=== PATIENT | male | born 2000 | race African-American/Black ===

== ENCOUNTER 2020-10-17 12:55 | Emergency (ER) | payer OTHER ==
[~2020-10-17] VITALS: Ht 180.3 cm; Wt 86.2 kg
[2020-10-17 13:20] LABS: ABSOLUTE NEUTROPHILS 5.5 thou/uL (1.4-8.2); BASOPHILS 0.7 % (0.0-2.0); EOSINOPHILS 0.2 % (0.0-3.0); HEMATOCRIT 49.2 % (42.0-52.0); HEMOGLOBIN 16.7 gm/dL (14.0-18.0); LYMPHOCYTES 20.9 % (24.0-44.0); MCH 32.3 pg (26.0-34.0); MCHC 33.8 g/dL (28.0-37.0); MCV 95.3 fL (80.0-100.0); MONOCYTES 8.6 % (1.0-8.0); PLATELET COUNT 233 thou/uL (150-400); POLYS 69.6 % (36.0-66.0); RBC 5.16 mil/uL (4.50-6.00)
[2020-10-17 13:29] LABS: CALCIUM 9.7 mg/dL (8.5-10.1); CREATININE 1.5 mg/dL (0.7-1.3); POTASSIUM 4.4 mmol/L (3.5-5.1)
--- NOTE | 2020-10-17 13:31 | EKG ---
[address] [employer] [place] [address] ELECTROCARDIOGRAM REPORT Name: SHAYY GARCIARANJANLEANDRA DUGGAN [id number] Admission: 10/17/20 Attend Phys: Discharge: Date of : 00 Report #: [id number] [facility] ED Test Date: 2020-10-17 Test Time: 13:06:35 Pat Name: SALLY GARCIA Department: Room: Gender: M Apparel Designer: michelle : 2000 Requested By: Tyler Malone Order Number: [id number] MD: Aravind Nicholas Measurements Intervals [place] Rate: 87 P: 83 RI: 134 QRS: 59 QRSD: 89 T: 39 QT: 361 QTc: 435 Interpretive Statements Sinus rhythm J Point elev V1-3, probable normal early repol pattern No previous ECG available for comparison Electronically Signed On 10-17-2020 13:31:06 CDT by Aravind Nicholas [email or web address] <ELECTRONICALLY SIGNED> By: Aravind Nicholas MD, [facility] 10/17/20 1331 1306 1306 Aravind Nicholas MD, FACC /EPI
[2020-10-17 13:35] LABS: ALBUMIN 4.5 g/dL (3.4-5.0); TOTAL BILIRUBIN 1.2 mg/dL (0.2-1.0); TOTAL PROTEIN 9.1 g/dL (6.4-8.2)
[2020-10-17] MEDS ORDERED: KEPPRA 500 MG500 M1 PO (14:14)
[2020-10-17 15:11] VITALS: BP 124/67
[2020-10-17 15:13] LABS: URINE BILIRUBIN NEGATIVE (Negative); URINE BLOOD NEGATIVE (Negative); URINE CLARITY CLEAR; URINE COLOR YELLOW; URINE GLUCOSE-RANDOM* NEGATIVE (Negative); URINE KETONES TRACE (Negative); URINE LEUKOCYTES-REFLEX NEGATIVE (Negative); URINE NITRITE-REFLEX NEGATIVE (Negative); URINE PROTEIN (DIPSTICK) 1+ (Negative); URINE SPECIFIC GRAVITY >= 1.030 (1.005-1.035)
[2020-10-17 15:26] LABS: FINE GRANULAR CASTS 0-3 Few /LPF (None Seen); MUCUS 4-6 Moderate strn/LPF (None Seen)
[2020-10-17 15:27] LABS: SQUAMOUS 0-3 Few /LPF (0-3); URINE RBC None Seen /HPF (NONE SEEN); URINE WBC-REFLEX 0-5 Rare /HPF (0-5)
[2020-10-17 15:28] LABS: BACTERIA-REFLEX 1-9 Few /HPF (None Seen); CRYSTALS None Seen /LPF (None Seen)
== END 2020-10-17 15:51 | disposition home or self-care (01) ==
LOC: ER 12:55
PROVIDERS: Emergency Medicine
DX: R56.9 Unspecified convulsions (principal)

== ENCOUNTER 2021-01-13 17:24 | Emergency (ER) | payer OTHER ==
[~2021-01-13] VITALS: Ht 182.9 cm; Wt 90.7 kg
--- NOTE | ~2021-01-13 | EMS ---
[address] [address] EMS Patient Care Report Name: SALLY GARCIA III Room #: [facility] M.R.#: [id number] Admission: Attend Phys: Discharge: Date of : 00 Report #: [id number] THIS REPORT FOR: //name// Report Transmitted: 01/13/2021 16:57 EMS Care Summary [place], [place]/[facility] Incident [id number] @ 01/13/2021 16:49 Incident Location [address] [place] [address] Patient SALLY GARCIA Male, 20 Years 2000 Patient Address [id number] [place] [address] Patient History Seizures, Patient Allergies No known allergies, Patient Medications None Reported, Chief Complaint seizure Disposition Transported No Lights/[place] Dispatch Reason Convulsions/Seizure Transported To [place] [facility] Narrative Initially dispatched with [facility] for seizures. Upon EMS arrival patient was found laying in his bed, very confused, vomiting, very anxious. Girlfriend [address] [address] EMS Patient Care Report Name: SALLY GARCIA III [facility] [id number] Admission: Attend Phys: Discharge: Date of : 00 Report #: [id number] reported that the patient has a history of seizures but stopped taking his medication because it gave him headaches. She stated that today he had a seizure, but was unsure how long it lasted. Girlfriend stated that she knew he had a seizure because he "spit up" and then fell asleep and was snoring. Patient was carried to the stretcher using a [employer]. Throughout transport the patient kept removing the cannula from his nose and taking his seatbelts off. IV access was not attempted for this reason. Patient was transported to [facility] without incident. Full report was given to RN prior to signing this document. Initial Vitals @17:14P: 179,CO: 12,SpO2: 98, @17:07P: 72,ID Suspected: false @17:15P: 89,BP: 83/43,SpO2: 98, @17:17P: 80,R: 18,BP: 144/64,GCS: 14,CO: 10,SpO2: 98,Revised Trauma: 12, @17:07P: 87,R: 22,BP: 132/67,Pain: 6/10,GCS: 14,SpO2: 98,Revised Trauma: 12, Assessments @16:57MENTAL:Confused,SKIN:No Abnormalities,HEENT:Head/Face: No Abnormalities,Eyes: No Abnormalities,Neck/Airway: No Abnormalities,LUNG SOUNDS:General: Vomiting,ABDOMEN:General: Vomiting,PELVIS//GI:EXTREMITIES:Left Arm: No Abnormalities,Right Arm: No Abnormalities,Left Leg: No Abnormalities,Right Leg: No Abnormalities,PULSE:NEURO:No Abnormalities, Impression Seizures Procedures @16:57ALS AssessmentResponse: UnchangedSucceeded@17:07Oxygen FlowRate: 6 Device: Nasal Cannula (NC) Response: UnchangedFailed@17:073-Lead ECGResponse: UnchangedSucceeded Timeline 16:44,Call Received 16:44,Dispatch Notified 16:49,Dispatched 16:49,En Route 16:55,On Scene 16:57,At Patient 16:57,ALS Assessment,Response: UnchangedSucceeded, 17:07,Oxygen FlowRate: 6 Device: Nasal Cannula (NC) Response: UnchangedFailed, 17:07,3-Lead ECG,Response: UnchangedSucceeded, 17:07,BP: 132/67 M,PULSE: 87,RR: 22 R,SPO2: 98 Ox,ETCO2: ,BG: ,PAIN: 6,GCS: 14, 17:07,BP: / M,PULSE: 72,RR: R,SPO2: Ox,ETCO2: ,BG: ,PAIN: ,GCS: , 17:10,Depart Scene [address] [address] EMS Patient Care Report Name: SALLY GARCIA [facility] Room #: [facility] M.R.#: [id number] Admission: Attend Phys: Discharge: Date of : 00 Report #: [id number] 17:14,BP: / M,PULSE: 179,RR: R,SPO2: 98 Ox,ETCO2: ,BG: ,PAIN: ,GCS: , 17:15,BP: 83/43 M,PULSE: 89,RR: R,SPO2: 98 Ox,ETCO2: ,BG: ,PAIN: ,GCS: , 17:17,BP: 144/64 M,PULSE: 80,RR: 18 R,SPO2: 98 Ox,ETCO2: ,BG: ,PAIN: ,GCS: 14, 17:20,At Destination 17:30,Call Closed Disclaimer v1.1 Copyright 2020 [employer] This EMS Care Summary contains data elements from the applicable legal record (which may be displayed differently). It is designed to provide pertinent information for the following purposes: continuity of care, clinical quality, and state data reporting. The complete legal record is available to ED staff and administrators of the receiving hospital in [employer]'s Patient Tracker. All data is provided "as is."
[~2021-01-13 17:24] MED LIST: KEPPRA 500 MG500 M1 PO
[2021-01-13 17:47] LABS: ABSOLUTE NEUTROPHILS 5.4 thou/uL (1.4-8.2); BASOPHILS 0.7 % (0.0-2.0); EOSINOPHILS 1.1 % (0.0-3.0); HEMATOCRIT 48.9 % (42.0-52.0); HEMOGLOBIN 16.4 gm/dL (14.0-18.0); LYMPHOCYTES 24.7 % (24.0-44.0); MCH 32.3 pg (26.0-34.0); MCHC 33.6 g/dL (28.0-37.0); MONOCYTES 7.6 % (1.0-8.0); PLATELET COUNT 224 thou/uL (150-400); POLYS 65.9 % (36.0-66.0); RDW 13.4 % (10.5-14.5); WBC 8.1 thou/uL (4.0-11.0)
[2021-01-13 18:03] LABS: CALCIUM 9.2 mg/dL (8.5-10.1); CREATININE 1.5 mg/dL (0.7-1.3)
[2021-01-13 18:10] LABS: ALBUMIN 4.4 g/dL (3.4-5.0); TOTAL BILIRUBIN 1.2 mg/dL (0.2-1.0); TOTAL PROTEIN 8.7 g/dL (6.4-8.2)
[2021-01-13 18:17] LABS: URINE BILIRUBIN NEGATIVE (Negative); URINE BLOOD TRACE (Negative); URINE CLARITY CLEAR; URINE COLOR YELLOW; URINE GLUCOSE-RANDOM* NEGATIVE (Negative); URINE KETONES TRACE (Negative); URINE LEUKOCYTES-REFLEX NEGATIVE (Negative); URINE NITRITE-REFLEX NEGATIVE (Negative); URINE PROTEIN (DIPSTICK) TRACE (Negative); URINE SPECIFIC GRAVITY >= 1.030 (1.005-1.035); URINE UROBILINOGEN 0.2 E.U./dl (0.2-1.0)
[2021-01-13 18:26] LABS: AMP/METHAMP POSITIVE (Negative); BARBITURATES Negative (Negative); BENZODIAZEPINES Negative (Negative); COCAINE Negative (Negative); METHADONE Negative (Negative); OPIATES Negative (Negative); PCP Negative (Negative)
[2021-01-13 18:29] VITALS: BP 131/65
--- NOTE | 2021-01-14 15:08 | EKG ---
[address] [address] [place] [address] ELECTROCARDIOGRAM REPORT Name: SALLY GARCIA III [id number] Admission: 01/13/21 Attend Phys: Discharge: 01/13/21 Date of : 00 Report #: [id number] [facility] ED Test Date: 2021-01-13 Test Time: 17:43:51 Pat Name: SALLY GARCIA Department: Room: Gender: Cmv Driver: GM : 2000 Requested By: Jia Spain Order Number: [id number] MD: Aravind Nicholas Measurements Intervals [place] Rate: 68 P: 67 ND: 151 QRS: 28 QRSD: 96 T: 40 QT: 396 QTc: 422 Interpretive Statements Sinus rhythm ST elev, probable normal early repol pattern Compared to ECG 10/17/2020 13:06:35 ST (T wave) deviation now present Electronically Signed On 01-14-2021 15:08:31 CDT by Aravind Nicholas [email or web address] <ELECTRONICALLY SIGNED> By: Aravind Nicholas MD, [facility] 01/14/21 1508 D: 08/1742 42 Aravind Nicholas MD, FACC /EPI
== END 2021-01-13 18:29 | disposition home or self-care (01) ==
LOC: ER 17:24
PROVIDERS: Physician Assistant
DX: R56.9 Unspecified convulsions (principal)

== ENCOUNTER 2021-06-07 11:43 | Emergency (ER) | payer OTHER ==
[~2021-06-07] VITALS: Ht 182.9 cm; Wt 86.2 kg
[2021-06-07 11:43] VITALS: BP 124/53
[2021-06-07] MEDS ORDERED: KEPPRA 500 MG500 M1 PO (12:45)
== END 2021-06-07 12:45 | disposition home or self-care (01) ==
LOC: ER 11:43
DX: R56.9 Unspecified convulsions (principal)